=== PATIENT | male | born 1995 | race Caucasian/White ===

== ENCOUNTER 2020-12-22 13:35 | Emergency (ER) | payer OTHER ==
[~2020-12-22 13:35] MED LIST: CIPRO500 MG PO; MEDROL 4MG DOSEP4 MG PO; METRONIDAZOLE500 MG PO; MOBIC15 MG PO; NAPROXEN500 MG PO; ROBAXIN750 MG PO; ZOFRAN ODT4 MG PO
[2020-12-22 15:03] LABS: BASOPHIL 0.7 % (0-2); EOSINOPHIL 3.8 % (0-5); HCT 48.4 % (42.0-52.0); HGB 17.3 g/dl (13.2-18.0); LYMPHOCYTE 34.4 % (15-48); MCH 31.2 pg (25.0-31.0); MCHC 35.7 g/dL (32.0-36.0); MCV 87.2 fL (78.0-100.0); MONOCYTE 5.7 % (0-12); NEUTROPHIL 54.9 % (41-80); NRBC 0; PLT 209 K/uL (150-400); RBC 5.55 M/uL (4.70-6.00); RDW 12.7 % (11.5-14.0); WBC 5.8 K/uL (4.0-10.5)
[2020-12-22 15:24] LABS: ALBUMIN 3.9 g/dL (3.4-5.0); BILIRUBIN - TOTAL 0.4 mg/dL (0.2-1.0); CREATININE 0.69 mg/dL (0.67-1.17); GLOBULIN (CALCULATION) 3.9 g/dL; POTASSIUM 4.4 mmol/L (3.5-5.1); TOTAL PROTEIN 7.8 g/dL (6.4-8.2)
[2020-12-22 16:48] LABS: BILIRUBIN NEGATIVE (NEGATIVE); BLOOD NEGATIVE Ery/uL (NEGATIVE); CLARITY CLEAR (CLEAR); COLOR YELLOW (YELLOW); GLUCOSE (U) NORMAL (NORMAL); LEUKOCYTES NEGATIVE Leu/uL (NEGATIVE); NITRITE NEGATIVE (NEGATIVE); PROTEIN NEGATIVE (NEGATIVE); UROBILINOGEN 0.2 mg/dL (0.2-1.0)
[2020-12-22] MEDS ORDERED: CYCLOBENZAPRINE10 MG PO (18:52)
[2020-12-22] MEDS ORDERED: MEDROL 4MG DOSEP4 MG PO (18:52)
== END 2020-12-22 19:10 | disposition home or self-care (01) ==
LOC: FER 13:35
PROVIDERS: Emergency Medicine
DX: N20.0 Calculus of kidney (principal); K76.0 Fatty (change of) liver, not elsewhere classified
CPT/HCPCS: 36415; 80053; 81003; 85025; J1885; J2405; J7030; Q9967

== ENCOUNTER 2021-07-03 04:27 | Emergency (ER) | payer OTHER ==
[~2021-07-03 04:27] MED LIST changes: +CYCLOBENZAPRINE10 MG PO
[2021-07-03 06:12] LABS: BASOPHIL 0.5 % (0-2); EOSINOPHIL 2.4 % (0-5); HCT 45.2 % (42.0-52.0); HGB 15.9 g/dl (13.2-18.0); LYMPHOCYTE 26.8 % (15-48); MCH 30.7 pg (25.0-31.0); MCHC 35.2 g/dL (32.0-36.0); MCV 87.3 fL (78.0-100.0); MONOCYTE 5.8 % (0-12); MPV 9.3 fL (6.0-9.5); NEUTROPHIL 64.2 % (41-80); NRBC 0; PLT 220 K/uL (150-400); RBC 5.18 M/uL (4.70-6.00); RDW 12.2 % (11.5-14.0); WBC 11.1 K/uL (4.0-10.5)
[2021-07-03 06:14] LABS: BILIRUBIN NEGATIVE (NEGATIVE); BLOOD 3+ Ery/uL (NEGATIVE); CLARITY HAZY (CLEAR); COLOR YELLOW (YELLOW); GLUCOSE (U) NORMAL (NORMAL); LEUKOCYTES NEGATIVE Leu/uL (NEGATIVE); NITRITE NEGATIVE (NEGATIVE); PROTEIN NEGATIVE (NEGATIVE); SPECIFIC GRAVITY 1.015 (1.001-1.030); UROBILINOGEN 0.2 mg/dL (0.2-1.0)
[2021-07-03 06:22] LABS: ALBUMIN 3.7 g/dL (3.4-5.0); BILIRUBIN - TOTAL 0.5 mg/dL (0.2-1.0); BUN/CREAT RATIO (CALC) 17.1 RATIO; CREATININE 0.82 mg/dL (0.67-1.17); GLOBULIN (CALCULATION) 3.7 g/dL; POTASSIUM 3.3 mmol/L (3.5-5.1); TOTAL PROTEIN 7.4 g/dL (6.4-8.2)
[2021-07-03 06:23] LABS: AMPHETAMINES NEGATIVE (NEGATIVE); BARBITURATES NEGATIVE (NEGATIVE); ECSTASY (MDMA) NEGATIVE (NEGATIVE); MARIJUANA (THC) POSITIVE (NEGATIVE); METHADONE NEGATIVE (NEGATIVE); OPIATES NEGATIVE (NEGATIVE); OXYCODONE NEGATIVE (NEGATIVE)
[2021-07-03 06:42] LABS: BACTERIA 1+; URINARY RBC 20-50
[2021-07-03] MEDS ORDERED: PERCOCET 5-3251 EACH PO (07:22)
[2021-07-03] MEDS ORDERED: NAPROXEN500 MG PO (07:22)
[2021-07-03] MEDS ORDERED: FLOMAX0.4 MG PO (07:22)
== END 2021-07-03 07:46 | disposition home or self-care (01) ==
LOC: FER 04:27
PROVIDERS: Internal Medicine
DX: N13.2 Hydronephrosis with renal and ureteral calculous obstruction (principal); J45.909 Unspecified asthma, uncomplicated; F17.210 Nicotine dependence, cigarettes, uncomplicated; Z88.1 Allergy status to other antibiotic agents
CPT/HCPCS: 36415; 80053; 80305; 81001; 83690; 85025; J1170; J2405